=== PATIENT | female | born 1980 | race Caucasian/White ===

== ENCOUNTER 2022-08-27 18:35 | Emergency (ER) | payer BC, OTHER ==
[~2022-08-27] VITALS: Ht 157.5 cm; Wt 57.0 kg
[2022-08-27] MEDS ORDERED: ADDE20CA3 PO (18:44)
[2022-08-27] MEDS ORDERED: LIDOCAINE 2% MDV 20ML VIAL SC ONE (19:50)
[2022-08-27] MEDS ORDERED: AUGMENTIN 875 MG TAB PO ONE (19:50)
[2022-08-27] MEDS ORDERED: AMOX875T2 PO (21:24)
[2022-08-27 21:25] VITALS: BP 131/70; TEMP 97.9; O2SAT 100
== END 2022-08-27 21:30 | disposition home or self-care (01) ==
LOC: M ED 18:35
DX: S61.431A Puncture wound without foreign body of right hand, initial encounter (principal); S61.432A Puncture wound without foreign body of left hand, initial encounter; W54.0XXA Bitten by dog, initial encounter; Y92.009 Unspecified place in unspecified non-institutional (private) residence as the place of occurrence of the external cause; Z79.2 Long term (current) use of antibiotics; Z79.899 Other long term (current) drug therapy

== ENCOUNTER 2023-04-18 12:39 | Emergency (ER) | payer BC ==
[~2023-04-18] VITALS: Ht 157.5 cm; Wt 64.3 kg
[~2023-04-18 12:39] MED LIST: ADDE20CA3 PO; AMOX875T2 PO
[2023-04-18] MEDS ORDERED: ACET-683 PO (14:49)
[2023-04-18] MEDS ORDERED: IBUP200C28 PO (14:49)
[2023-04-18 15:14] LABS: BASO % 0.2 % (0.0-1.0); EOS # 0.1 10^3/uL (0.0-0.5); EOS % 0.4 % (0.0-3.0); HEMATOCRIT 35.6 % (36.0-47.0); HEMOGLOBIN 12.1 g/dl (12.0-15.5); LYMPH # 2.8 10^3/uL (1.5-5.0); LYMPH % 22.8 % (24.0-44.0); MEAN CORPUSCULAR HEMOGLOBIN 33.8 pg (27.0-33.0); MEAN CORPUSCULAR VOLUME 99.4 fl (80.0-96.0); MONO # 0.6 10^3/uL (0.0-0.8); NEUTROPHILS # 8.6 10^3/uL (1.5-8.5); NEUTROPHILS % 71.3 % (36.0-66.0); PLATELET COUNT, AUTOMATED 276 10^3/uL (150-450); RED BLOOD COUNT 3.58 10^6/uL (4.00-5.40); WHITE BLOOD COUNT 12.1 10^3/uL (4.0-10.0)
[2023-04-18 15:39] LABS: ERYTHROCYTE SEDIMENTATION RATE 19 mm/hr (0-20)
[2023-04-18 15:47] VITALS: BP 147/80; TEMP 97.6; O2SAT 100
[2023-04-18] MEDS ORDERED: AMOX500C PO (16:03)
[2023-04-18] MEDS ORDERED: IBUP-1022 PO (16:03)
[2023-04-18] MEDS: AMOXICILLIN 500 MG CAP PO ONE (16:14)
[2023-04-18] MEDS: IBUPROFEN 600MG TAB PO ONE (16:15)
== END 2023-04-18 16:21 | disposition home or self-care (01) ==
LOC: M ED 12:39
DX: K04.7 Periapical abscess without sinus (principal); Z79.2 Long term (current) use of antibiotics; Z79.1 Long term (current) use of non-steroidal anti-inflammatories (NSAID); Z79.899 Other long term (current) drug therapy